=== PATIENT | female | born 1970 | race Two or more races ===

== ENCOUNTER 2018-05-29 15:31 | Emergency (ER) | payer SELFPAY ==
[~2018-05-29] VITALS: Ht 162.6 cm; Wt 81.6 kg
[2018-05-29 16:40] LABS: Albumin 3.6 g/dL (3.4-5.0); Anion Gap 7 (5-15); Blood Urea Nitrogen 12 mg/dL (7-18); Calcium 9.1 mg/dL (8.5-10.1); Carbon Dioxide 24 mmol/L (21-32); Chloride 108 mmol/L (98-107); Glucose 96 mg/dL (74-106); Potassium 3.2 mmol/L (3.5-5.1); Sodium 139 mmol/L (136-145)
[2018-05-29 16:43] LABS: Alanine Aminotransferase 32 U/L (13-56); Alkaline Phosphatase 68 U/L (45-117); Aspartate Aminotransferase 30 U/L (15-37); Basophils # (auto) 0.1 uL; Basophils % (auto) 0.4 % (0.0-2.0); Bilirubin, Total 0.3 mg/dL (0.2-1.0); Eosinophils # (auto) 0.1 uL; Eosinophils % (auto) 1.1 % (0.0-7.0); GFR African American 90 mL/min; GFR Non-African American 74 mL/min; Hematocrit 44.7 % (36.0-46.0); Hemoglobin 14.4 g/dL (12.2-16.2); Lymphocytes # (auto) 1.9 uL; Mean Corpuscular Hemoglobin 31.8 pg (28.0-32.0); Mean Corpuscular Hgb Conc. 32.1 g/dL (32.0-36.0); Mean Corpuscular Volume 99.1 fL (80.0-100.0); Monocytes # (auto) 0.9 uL; Monocytes % (auto) 6.4 % (0.0-12.0); Neutrophils # (auto) 10.7 uL; Neutrophils % (auto) 78.1 % (37.0-80.0); Platelet Count (auto) 285 10^3/uL (140-450); Red Blood Cells 4.51 10^6/uL (4.0-5.20); Red Cell Distribution Width 13.5 % (11.8-14.3); Total Protein 8.2 g/dL (6.4-8.2); White Blood Cell 13.6 10^3/uL (4.4-10.8)
[2018-05-29] MEDS ORDERED: SODIUM CHLORIDE 0.9% 1,000 ML IV ONE (21:15)
[2018-05-29] MEDS ORDERED: HYDROcodone-ACET 5/325MG TAB PO ONE (21:30)
[2018-05-29] MEDS ORDERED: IOHEXOL 350 MG/ML 100ML IJ ONE (22:13)
[2018-05-29] MEDS ORDERED: ONDANSETRON HCL 4 MG/2 ML VIAL IV ONE (22:15)
[2018-05-30] VITALS: BP 107/50
== END 2018-05-30 00:29 | disposition home or self-care (01) ==
LOC: EDBD 15:40 → ER 15:40
DX: S20.212A Contusion of left front wall of thorax, initial encounter (principal); S70.01XA Contusion of right hip, initial encounter; S70.11XA Contusion of right thigh, initial encounter; S16.1XXA Strain of muscle, fascia and tendon at neck level, initial encounter; I10 Essential (primary) hypertension; V49.49XA Driver injured in collision with other motor vehicles in traffic accident, initial encounter; Y93.89 Activity, other specified; Y99.8 Other external cause status; Y92.410 Unspecified street and highway as the place of occurrence of the external cause
CPT/HCPCS: 36415; 70450; 71045; 71275; 72125; 73502; 80053; 84484; 85025; 85379; 94761; 96374; 99284; J2405; J7030; Q9967